=== PATIENT | female | born 1995 | race African-American/Black ===

== ENCOUNTER 2017-03-03 12:40 | Emergency (ER) | payer MEDICAID ==
[~2017-03-03] VITALS: Ht 160 cm; Wt 95.5 kg
[~2017-03-03 12:40] MED LIST: DAYQUIL; IBUP-1509 PO
[2017-03-03 13:09] VITALS: BP 130/77
[2017-03-03] MEDS ORDERED: ACET-2178 PO (13:09)
== END 2017-03-03 20:00 | disposition left against medical advice (07) ==
LOC: ER 19:14
DX: R10.9 Unspecified abdominal pain (principal); Z53.21 Procedure and treatment not carried out due to patient leaving prior to being seen by health care provider

== ENCOUNTER 2020-03-28 22:22 | Emergency (ER) | payer MEDICAID, OTHER ==
[~2020-03-28] VITALS: Ht 160 cm; Wt 99.0 kg
[~2020-03-28 22:22] MED LIST changes: -DAYQUIL; -IBUP-1509 PO; +TOPUD PO
[2020-03-28] MEDS ORDERED: ACETAMINOPHEN 325MG TABLET PO PRN (23:45)
[2020-03-29 00:16] LABS: BASOPHILS % 0.6 % (0.0-2.0); EOSINOPHILS % 0.7 % (0.0-5.0); HEMATOCRIT. 39.3 % (36.0-48.0); HEMOGLOBIN. 13.5 g/dL (12.0-16.0); LYMPHOCYTES % 38.1 % (20.0-50.0); MEAN CORPUSCULAR HEMOGLOBIN 31.5 pg (28.0-32.0); MEAN CORPUSCULAR VOLUME 91.5 fL (81.0-99.0); MEAN PLATELET VOLUME 7.7 fl (7.4-10.4); MONOCYTES % 8.3 % (2.0-8.0); NEUTROPHILS % 52.3 % (40.0-76.0); PLATELET 257 x1000/uL (130-400); RED BLOOD CELL COUNT 4.29 mill/uL (4.2-5.4); RED CELL DISTRIBUTION WIDTH 13.9 % (11.6-14.6)
[2020-03-29 00:17] LABS: CHLORIDE 104 mEq/L (98-107)
[2020-03-29 00:40] LABS: B-HCG QUANTITATIVE 44582 mIU/mL (<3)
[2020-03-29 02:19] LABS: CLARITY URINE CLOUDY (CLEAR); COLOR URINE RED (YELLOW); KETONES URINE NEGATIVE (NEGATIVE); LEUKOCYTE ESTERASE URINE 1+ (NEGATIVE); NITRITE URINE NEGATIVE (NEGATIVE); OCCULT BLOOD URINE 3+ (NEGATIVE); PH URINE 6.5 (4.5-8.0); PROTEIN URINE 1+ (NEGATIVE); SPECIFIC GRAVITY URINE 1.023 (1.005-1.030)
[2020-03-29 03:45] VITALS: BP 100/50
== END 2020-03-29 03:45 | disposition home or self-care (01) ==
LOC: ER 22:22
DX: O02.1 Missed abortion (principal)
CPT/HCPCS: 36415; 76801; 80053; 81003; 81025; 84702; 85025; 86850; 86900; 99285